=== PATIENT | female | born 1985 | race Caucasian/White ===

== ENCOUNTER 2018-11-23 12:52 | Emergency (ER) | payer BC ==
[~2018-11-23] VITALS: Ht 170.2 cm; Wt 120.0 kg
[2018-11-23] MEDS ORDERED: SODIUM CHLORIDE 0.9% 1,000 ML IV ONE (13:28)
[2018-11-23 14:05] LABS: HEMATOCRIT. 30.2 % (36.0-48.0); HEMOGLOBIN. 9.3 g/dL (12.0-16.0); MEAN PLATELET VOLUME 6.5 fl (7.4-10.4); PLATELET 297 x1000/uL (130-400); RED BLOOD CELL COUNT 4.44 mill/uL (4.2-5.4); RED CELL DISTRIBUTION WIDTH 21.6 % (11.6-14.6)
[2018-11-23 14:12] LABS: CHLORIDE 113 mEq/L (98-107)
[2018-11-23 14:36] LABS: PLATELET ESTIMATE NORMAL
[2018-11-23 14:37] LABS: HCG SCREEN NEGATIVE
[2018-11-23 14:41] LABS: ETHANOL BLOOD 429 mg/dL
[2018-11-23 17:13] VITALS: BP 106/66
== END 2018-11-23 17:21 | disposition home or self-care (01) ==
LOC: ER 12:52
DX: G92 Toxic encephalopathy (principal); F10.129 Alcohol abuse with intoxication, unspecified; Y90.8 Blood alcohol level of 240 mg/100 ml or more
CPT/HCPCS: 36415; 80053; 80307; 80320; 80329; 84703; 85025; 99283; J7030; G0480